=== PATIENT | male | born 1955 | race Caucasian/White ===

== ENCOUNTER 2020-02-08 08:08 | Emergency (ER) | payer MEDICARE, BC ==
[~2020-02-08] VITALS: Ht 193 cm; Wt 138.0 kg
[2020-02-08] MEDS ORDERED: normal saline 1000ML IV soln IVB ONE (08:25)
[2020-02-08] MEDS ORDERED: diltiazem-D5W 125mg/125ml 125 ML IV ONE (08:52)
[2020-02-08] MEDS ORDERED: diltiazem-NS 100mg/100ml 100 ML IV ONE (08:55)
[2020-02-08] MEDS ORDERED: ondansetron/PF 4mg/2ml inj IV ONE (08:55)
[2020-02-08] MEDS ORDERED: morphine 10mg/ml inj. IV ONE (08:55)
[2020-02-08] MEDS ORDERED: orphenadrine citrate 60mg/2ml inj. IM ONE (08:55)
[2020-02-08] MEDS ORDERED: diltiazem 5mg/ml 5ml inj. IV ONE (08:55)
[2020-02-08 09:22] LABS: BASOPHILS % (AUTO) 0.3 % (0-1); EOSINOPHILS # (AUTO) 0.1 X10'3 (0-0.9); HEMATOCRIT 47.3 % (42.0-52.0); HEMOGLOBIN 16.3 g/dl (14.0-17.9); LYMPHOCYTES # (AUTO) 1.8 X10'3 (1.1-4.8); LYMPHOCYTES % (AUTO) 17.1 % (21-51); MEAN CORPUSCULAR HEMOGLOBIN 34.5 PG (27.0-31.0); MEAN CORPUSCULAR HGB CONC 34.4 g/dL (33.0-36.5); MEAN CORPUSCULAR VOLUME 100.1 FL (78-98); MEAN PLATELET VOLUME 8.4 FL (7.4-10.4); MONOCYTES # (AUTO) 0.6 X10'3 (0-0.9); MONOCYTES % (AUTO) 5.2 % (2-12); NEUTROPHILS # (AUTO) 8.1 X10'3 (1.8-7.7); NEUTROPHILS % (AUTO) 76.4 % (42-75); PLATELET COUNT 206 X10'3 (140-440); RED BLOOD COUNT 4.72 X10'6 (4.70-6.10); RED CELL DISTRIBUTION WIDTH 13.3 % (11.5-14.5); WHITE BLOOD COUNT 10.6 X10'3 (4.5-11.0)
[2020-02-08 09:27] LABS: ALANINE AMINOTRANSFERASE 26 U/L (12-78); ALBUMIN 3.1 G/DL (3.4-5.0); ALBUMIN/GLOBULIN RATIO 0.8 (1.1-1.5); ALKALINE PHOSPHATASE 57 IU/L (46-116); ANION GAP 9 (8-16); ASPARTATE AMINO TRANSFERASE 30 U/L (10-37); BILIRUBIN,TOTAL 1.1 MG/DL (0.1-1.0); BLOOD UREA NITROGEN 12 MG/DL (7-18); BUN/CREATININE RATIO 13.3 (5.4-32.0); CALCIUM 8.8 MG/DL (8.5-10.1); CHLORIDE 106 MMOL/L (99-107); ETHANOL < 0.010 GM/DL (0.0-0.010); GLUCOSE 128 MG/DL (70-104); SODIUM 143 MMOL/L (135-145); TOTAL CARBON DIOXIDE 27.9 MMOL/L (24-32); TOTAL PROTEIN 7.2 G/DL (6.4-8.2); eGFR 84 ML/MIN
[2020-02-08 09:29] LABS: POTASSIUM 3.9 MMOL/L (3.5-5.1)
[2020-02-08 09:34] LABS: PARTIAL THROMBOPLASTIN TIME 26 SECONDS (22-32)
[2020-02-08] MEDS ORDERED: HYDROmorphone 1 mg/ml syringe IV ONE (10:10)
[2020-02-08] MEDS: metoprolol tartrate 1mg/ml inj IV SCH ×2 (10:21→10:48)
--- NOTE | 2020-02-08 10:31 | NUR ---
PT RECEVIED METOPROL HR 108-120'S.PT AT BEDSIDE AWARE OF TRANSFER ,WILL GO TO PHARMACY FOR PT MANDY,PT BP 132/86.
[2020-02-08 11:26] VITALS: BP 115/80
== END 2020-02-08 11:27 | disposition short-term general hospital (02) ==
LOC: ER 08:08
DX: S12.100A Unspecified displaced fracture of second cervical vertebra, initial encounter for closed fracture (principal); S12.000A Unspecified displaced fracture of first cervical vertebra, initial encounter for closed fracture; I48.20 Chronic atrial fibrillation, unspecified; G89.29 Other chronic pain; R42 Dizziness and giddiness; R53.1 Weakness; W18.30XA Fall on same level, unspecified, initial encounter; Y93.89 Activity, other specified; Y92.89 Other specified places as the place of occurrence of the external cause; Y99.8 Other external cause status
CPT/HCPCS: 36415; 70450; 71045; 72125; 80053; 80320; 85025; 85610; 85730; 93005; 96361; 96372; 96374; 96375; 99291; J1170; J2270; J2360; J2405; J7030; 99285; J3490